=== PATIENT | female | born 1975 ===

== ENCOUNTER 2017-11-28 12:32 | Emergency (ER) | payer MEDICAID ==
[2017-11-28 12:32] VITALS: BMI 36.0
--- NOTE | 2017-11-28 13:57 | RAD ---
Date of service: 11/28/2017 HISTORY: chest pain COMPARISON: Chest radiograph dated 04/30/2012. TECHNIQUE: Chest PA and lateral FINDINGS: LUNGS: No active pulmonary disease. PLEURA: No significant pleural effusion identified. No pneumothorax apparent. CARDIOVASCULAR: Cardiomediastinal silhouette within normal limits OSSEOUS STRUCTURES: Unchanged. VISUALIZED UPPER ABDOMEN: Normal. OTHER FINDINGS: None. IMPRESSION: No active disease.
[2017-11-28 14:06] LABS: ALBUMIN 3.8 g/dL (3.5-5.0); ALT/SGPT 24 U/L (9-52); AST/SGOT 19 U/L (14-36); BLOOD UREA NITROGEN 17 mg/dl (7-17); GFR NON-AFRICAN AMERICAN > 60
[2017-11-28 14:07] LABS: BASO % 0.5 % (0.0-2.0); EOS % 0.5 % (0.0-4.0); HEMOGLOBIN 13.1 g/dL (12.0-16.0); LYMPH # 1.9 K/uL (1.0-4.3); LYMPH % 26.3 % (20.0-40.0); MEAN CELL VOLUME 93.2 fl (81.0-99.0); MEAN CORPUSCULAR HEMOGLOBIN 31.1 pg (27.0-31.0); MEAN CORPUSCULAR HGB CONC 33.4 g/dL (33.0-37.0); MEAN PLATELET VOLUME 8.3 fl (7.2-11.7); MONO # 0.5 K/uL (0.0-0.8); MONO % 7.1 % (0.0-10.0); NEUT # 4.7 K/uL (1.8-7.0); NEUT % 65.6 % (50.0-75.0); NRBC % 0.1 % (0.0-0.0); RBC 4.22 Mil/uL (3.80-5.20); RED CELL DISTRIBUTION WIDTH 13.3 % (11.5-14.5); WHITE BLOOD COUNT 7.1 K/uL (4.8-10.8)
--- NOTE | 2017-11-28 14:07 | ED PDOC ---
Lower Extremity Pain/Injury Time Seen by Provider: 11/28/17 12:44 Chief Complaint (Nursing): Chest Pain Chief Complaint (Provider): Right Knee Pain, Chest Pain History Per: Patient History/Exam Limitations: no limitations Onset/Duration Of Symptoms: Hrs Additional Complaint(s): 42 year old female, with a past medical history of type II diabetes, hypertension, and herniated discs, presenting via EMS for evaluation of right knee pain, 12/12. Patient states pain began last night and this morning while showering she felt her knee snap, causing her leg to buckle. Patient states she was able to brace herself and did not fall or hit her head, denies LOC. Patient reports she took Advil last night without relief of pain. Patient reports chest discomfort (05/12) secondary to the knee pain due to its severity. Patient denies any fever, chills, nausea, vomiting, or abdominal pain. Patient describes chest pain as a pressure, but denies any shortness of breath or cough. Patient offers no other complaints at this time. PMD: Dr. Jorge Perez LMP: 11/22/2017 Past Medical History Reviewed: Historical Data, Nursing Documentation, Vital Signs Vital Signs: Last Vital Signs Temp 98.0 F 11/28/17 12:35 Pulse 78 11/28/17 12:35 Resp 16 11/28/17 12:35 BP 131/62 11/28/17 12:35 Pulse Ox 99 11/28/17 12:35 - Medical History PMH: Asthma, Back Problems (2 herniated disc), Depression, Diabetes (type II), HTN, Kidney Stones - Surgical History Surgical History: Cholecystectomy, Coronary Stent (1 stent) Other surgeries: Kidney stone procedure - Family History Family History: States: Unknown Family Hx - Home Medications Home Medications: Ambulatory Orders Medication Instructions Recorded RX: Metformin HCl [Glucophage] 850 mg PO DAILY 12/29/15 RX: Liraglutide [Victoza 2-Jack] 8 mg SC QAM 03/15/16 RX: Docusate [Colace] 100 mg PO BID #60 cap 03/24/16 RX: oxyCODONE/Acetaminophen 1 ea PO Q12H PRN #20 tab 03/24/16 [Percocet 5/325 mg Tab] RX: Lisinopril [Prinivil] 5 mg PO DAILY #30 tablet 05/27/16 RX: Simvastatin 10 mg PO DAILY #30 tablet 05/27/16 RX: Famotidine [Pepcid] 20 mg PO BID #60 tab 09/01/16 RX: Metoprolol Succinate XL 12.5 mg PO DAILY #30 tab 09/01/16 [Toprol XL] RX: Insulin Glargine, Recombina 8 unit SC HS 12/05/16 [Lantus] Acetaminophen [Acetaminophen 8 650 mg PO Q8 PRN #21 tablet.er 11/28/17 Hour] RX: Ibuprofen [Motrin Tab] 800 mg PO Q8 PRN #21 tab 11/28/17 - Allergies Allergies/Adverse Reactions: Allergies Allergy/AdvReac Type Severity Reaction Status Date / Time aspirin Allergy URTICARIA Verified 11/28/17 12:37 Penicillins Allergy RASH Verified 11/28/17 12:37 Review of Systems ROS Statement: Except As Marked, All Systems Reviewed And Found Negative Constitutional: Negative for: Fever, Chills Cardiovascular: Positive for: Chest Pain ("pressure") Respiratory: Negative for: Cough, Shortness of Breath Gastrointestinal: Negative for: Nausea, Vomiting, Abdominal Pain Musculoskeletal: Positive for: Leg Pain (right knee) Physical Exam - Reviewed Nursing Documentation Reviewed: Yes Vital Signs Reviewed: Yes - Physical Exam Comments: GENERAL APPEARANCE: Patient is awake, alert, oriented x 3, in mild painful distress. Patient is morbidly obese. SKIN: Warm, dry; (-) cyanosis. NECK: Supple, FROM CHEST AND RESPIRATORY: (-) rales, (-) rhonchi, (-) wheezes; breath sounds equal bilaterally. Respirations even and nonlabored, speaking in full sentences. HEART AND CARDIOVASCULAR: (-) irregularity RIGHT KNEE: (+) diffuse tenderness of posterior right knee; no ROM secondary to pain, (-) erythema, (-) effusion, (-) skin break, (-) calf tenderness, (-) palpable cord, (-) ecchymosis. (-) deformity. (-) distal neurovascular deficit. Remainder of RLE: (-) tenderness. Distal pulses intact. NEURO AND PSYCH: Mental status as above. Sensation to bilateral lower extremities intact. (-) facial asymmetry (-) aphasia. Speech: clear. EOMI. - Laboratory Results Result Diagrams: 11/28/17 13:18 11/28/17 13:18 - ECG ECG: Positive for: Interpreted By Me, Viewed By Me Interpretation Of ECG: NSR at 73 BPM, (-) ST elevations, QTc 434 O2 Sat by Pulse Oximetry: 99 (RA) Pulse Ox Interpretation: Normal Medical Decision Making Medical Decision Makin Initial Impression: Acute right knee pain, chest discomfort. Plan: -EKG -CMP -Drug screen -Troponin -Udip -CBC -PTT/PT -CXR -X-ray right knee -Reglan 10mg PO -Tylenol 650mg PO -Tramadol 50mg PO -facial operator -IV insertion -US duplex right lower extremity -Reevaluation 1405 CXR reviewed, radiology report follows Date of service: 11/28/2017 HISTORY: chest pain COMPARISON: Chest radiograph dated 04/30/2012. TECHNIQUE: Chest PA and lateral FINDINGS: LUNGS: No active pulmonary disease. PLEURA: No significant pleural effusion identified. No pneumothorax apparent. CARDIOVASCULAR: Cardiomediastinal silhouette within normal limits OSSEOUS STRUCTURES: Unchanged. VISUALIZED UPPER ABDOMEN: Normal. OTHER FINDINGS: None. IMPRESSION: No active disease. 1420 Knee XR Date of service: 11/28/2017 PROCEDURE: Right Knee Radiographs. HISTORY: joint pain COMPARISON: None. FINDINGS: BONES: No acute fracture. JOINTS: Tricompartmental narrowing degenerative spurring. JOINT EFFUSION: None. OTHER FINDINGS: None. IMPRESSION: No demonstrated fracture or dislocation. Degenerative changes. Patient in U/S. Labs reviewed and grossly unremarkable. Utox: negative Flexeril 10mg PO ordered for additional pain control. 1600 Date of service: 11/28/2017 PROCEDURE: Right lower extremity venous duplex Doppler. HISTORY: pain COMPARISON: Right lower extremity venous duplex ultrasound performed 12/24/2008. TECHNIQUE: Common femoral, superficial femoral, popliteal and posterior tibial veins were evaluated. Flow was assessed with color Doppler, compressibility, assessment of phasic flow and augmentation response. FINDINGS: COMMON FEMORAL VEIN: Unremarkable. SUPERFICIAL FEMORAL VEIN: Unremarkable. POPLITEAL VEIN: Unremarkable. POSTERIOR TIBIAL VEIN: Unremarkable. OTHER FINDINGS: None. IMPRESSION: No evidence of deep venous thrombosis in the right lower extremity. Crutches and knee immobilizer ordered. NV intact after knee immobilizer placement. Patient supplied with crutches and instructed on crutch walking by ED staff. 1705 Case discussed with patient's PMD Dr Perez, who is agreeable to discharge and follow up in his office. On re-evaluation, patient reports improvement of symptoms, resolution of chest pain. On exam, patient remains AAOx3, in no acute distress. Lungs clear to auscultation, cardiac RRR, repeat neuro exam shows no focal findings. VSS, stable for discharge. RICE encouraged. Lab/Diagnostic results d/w the patient in great detail. Diagnosis of acute knee pain, chest discomfort d/w the patient. Based on history, exam and diagnostic results, plan will be for outpatient follow up. Patient instructed to follow-up with pmd / referral provided / the clinic in 1- 2 days without fail. Advised to take medication as prescribed. Return to the emergency room at any time for any new or worsening symptoms. Patient states she fully agrees with and understands discharge instructions. States that she agrees with the plan and disposition. Verbalized and repeated discharge instructions and plan. I have given the patient opportunity to ask any additional questions. Scribe Attestation: Documented by Shakir Garrett, acting as a scribe for Nighat Montes PA-C. Provider Scribe Attestation: All medical record entries made by the Scribe were at my direction and personally dictated by me. I have reviewed the chart and agree that the record accurately reflects my personal performance of the history, physical exam, medical decision making, and the department course for this patient. I have also personally directed, reviewed, and agree with the discharge instructions and disposition. Disposition - Clinical Impression Clinical Impression: Chest discomfort, Knee pain, acute - Patient ED Disposition Is Patient to be Admitted: No Counseled Patient/Family Regarding: Studies Performed, Diagnosis, Need For Followup, Rx Given - Disposition Referrals: Carmine Ballard MD [Medical Doctor] - Disposition: Routine/Home Disposition Time: 17:11 Condition: STABLE Additional Instructions: The emergency medical care you received today was directed towards the acute presenting symptoms. If you were prescribed any medication, please fill it and give as directed. It may take several days for your symptoms to resolve. Return to the Emergency Department at any time if symptoms worsen, do not improve, or if any other problems arise. Please contact your doctor in 2 days for re-evaluation and follow up / or call one of the physicians/clinics you have been referred to that are listed on the Patient Visit Information form that is included in your discharge packet. Bring any paperwork you were given at discharge with you along with any medications to your follow up visit. Our treatment cannot replace ongoing medical care by a primary care provider (PCP) outside of the emergency department. Prescriptions: Acetaminophen [Acetaminophen 8 Hour] 650 mg PO Q8 PRN #21 tablet.er PRN Reason: Pain, Moderate (4-7) RX: Ibuprofen [Motrin Tab] 800 mg PO Q8 PRN #21 tab PRN Reason: Pain, Moderate (4-7) Instructions: Chest Pain, Knee Sprain (DC), Ligament Injuries in the Knee, Knee Pain Forms: [employer] (Turkmen) Print Language: INDONESIAN - POA Present On Arrival: None Results - Lab Results Lab Results: 11/28/17 11/28/17 11/28/17 13:18 13:18 13:18 WBC 7.1 RBC 4.22 Hgb 13.1 Hct 39.3 MCV 93.2 MCH 31.1 H MCHC 33.4 RDW 13.3 Plt Count 248 MPV 8.3 Neut % (Auto) 65.6 Lymph % (Auto) 26.3 [place] % (Auto) 7.1 Eos % (Auto) 0.5 Baso % (Auto) 0.5 Neut # (Auto) 4.7 Lymph # (Auto) 1.9 [place] # (Auto) 0.5 Eos # (Auto) 0.0 Baso # (Auto) 0.0 PT 11.0 INR 1.0 APTT 29.5 Sodium 141 Potassium 4.0 Chloride 105 Carbon Dioxide 26 Anion Gap 14 BUN 17 Creatinine 0.7 Est GFR ( Amer) > 60 Est GFR (Non-Af Amer) > 60 Random Glucose 90 Calcium 9.0 Total Bilirubin 0.4 AST 19 ALT 24 Alkaline Phosphatase 90 Troponin I < 0.0120 Total Protein 7.6 Albumin 3.8 Globulin 3.7 Albumin/Globulin Ratio 1.0 Urine Opiates Screen Urine Methadone Screen Ur Barbiturates Screen Ur Phencyclidine Scrn Ur Amphetamines Screen U Benzodiazepines Scrn U Oth Cocaine Metabols U Cannabinoids Screen 11/28/17 13:00 WBC RBC Hgb Hct MCV MCH MCHC RDW Plt Count MPV Neut % (Auto) Lymph % (Auto) [place] % (Auto) Eos % (Auto) Baso % (Auto) Neut # (Auto) Lymph # (Auto) [place] # (Auto) Eos # (Auto) Baso # (Auto) PT INR APTT Sodium Potassium Chloride Carbon Dioxide Anion Gap BUN Creatinine Est GFR ( Amer) Est GFR (Non-Af Amer) Random Glucose Calcium Total Bilirubin AST ALT Alkaline Phosphatase Troponin I Total Protein Albumin Globulin Albumin/Globulin Ratio Urine Opiates Screen Negative Urine Methadone Screen Negative Ur Barbiturates Screen Negative Ur Phencyclidine Scrn Negative Ur Amphetamines Screen Negative U Benzodiazepines Scrn Negative U Oth Cocaine Metabols Negative U Cannabinoids Screen Negative
[2017-11-28 14:08] LABS: PARTIAL THROMBOPLASTIN TIME 29.5 Seconds (25.6-37.1)
[2017-11-28 14:11] LABS: BARBITURATES, UR NEGATIVE (NEGATIVE); BENZODIAZEPINES, UR NEGATIVE (NEGATIVE); OPIATES, UR NEGATIVE (NEGATIVE); PHENCYCLIDINE, UR NEGATIVE (NEGATIVE)
--- NOTE | 2017-11-28 14:17 | RAD ---
Date of service: 11/28/2017 PROCEDURE: Right Knee Radiographs. HISTORY: joint pain COMPARISON: None. FINDINGS: BONES: No acute fracture. JOINTS: Tricompartmental narrowing degenerative spurring. JOINT EFFUSION: None. OTHER FINDINGS: None. IMPRESSION: No demonstrated fracture or dislocation. Degenerative changes.
--- NOTE | 2017-11-28 15:55 | US ---
Date of service: 11/28/2017 PROCEDURE: Right lower extremity venous duplex Doppler. HISTORY: pain COMPARISON: Right lower extremity venous duplex ultrasound performed 12/24/2008. TECHNIQUE: Common femoral, superficial femoral, popliteal and posterior tibial veins were evaluated. Flow was assessed with color Doppler, compressibility, assessment of phasic flow and augmentation response. FINDINGS: COMMON FEMORAL VEIN: Unremarkable. SUPERFICIAL FEMORAL VEIN: Unremarkable. POPLITEAL VEIN: Unremarkable. POSTERIOR TIBIAL VEIN: Unremarkable. OTHER FINDINGS: None. IMPRESSION: No evidence of deep venous thrombosis in the right lower extremity.
[2017-11-28 17:06] VITALS: PULSE 72; RESP 20; TEMP 98.6
[2017-11-28 17:15] VITALS: O2SAT 99
[2017-11-28 17:19] VITALS: BP 109/74
--- NOTE | 2017-11-28 17:57 | CARD ---
APPROVED REPORT Date of service: 11/28/2017 EKG Measurement Heart [id number] VT 140P-9 [id number] <Conclusion> Normal sinus rhythm Normal ECG
== END 2017-11-28 17:26 | disposition home or self-care (01) ==
LOC: H.ER 12:32
DX: M25.561 Pain in right knee (principal); R07.89 Other chest pain; E11.9 Type 2 diabetes mellitus without complications; I10 Essential (primary) hypertension; Z79.4 Long term (current) use of insulin; Z88.0 Allergy status to penicillin; Z95.5 Presence of coronary angioplasty implant and graft
CPT/HCPCS: 29530; 71046; 73562; 80053; 80324; 80345; 80346; 80349; 80353; 80358; 80361; 81025; 83992; 84484; 85025; 85610; 85730; 93005; 93971; 96374; 99285; J2765